=== PATIENT | female | born 1965 | race Caucasian/White ===

== ENCOUNTER 2017-09-19 13:53 | Emergency (ER) | payer MEDICAID, SELFPAY ==
[2017-09-19 13:54] VITALS: BP 155/86; PULSE 93; RESP 16; TEMP 36.7; O2SAT 100; BMI 42.7
--- NOTE | 2017-09-19 14:11 | RAD_ITS ---
STUDY: X-RAY - LEFT FOOT CLINICAL: Female, 51 years old. Status post fall pain TECHNIQUE: 3 view(s) of the foot. COMPARISON: None. FINDINGS: There is enthesopathy at the calcaneus. Normal visualized subtalar, talonavicular, calcaneocuboid, tarsal and tarsometatarsal articulations. Normal metatarsi. Normal metatarsophalangeal joint of the great toe. Normal tibial and fibular sesamoid bones. Normal interphalangeal joint of the great toe. Normal phalanges of the great toe. Normal second through fifth metatarsophalangeal joints. There is a subtle cortical defect within the mid proximal phalanx of the fourth digit. RAD/Foot min 3 Views IMPRESSION: Question subtle nondisplaced fracture of the proximal phalanx of the fourth digit with overlying soft tissue swelling. No other fracture is visualized. If pain persists recommend follow-up study when clinically appropriate. Electronically Signed: Mary Feldman MD at 15:12 EDT Tel , Service support ,
--- NOTE | 2017-09-19 15:12 | ED.VISSUMM ---
- ER Visit Summary Date of Service: 09/19/17 Chief Complaint: [Fall with injury to left foot] History of Present Illness: The patient is a 51 F [presents to the emergency department with a fall that occurred this morning. Patient states that she was coming down the steps when she tripped over a shoe at the bottom of the landing falling and twisting her feet. Patient initially did not have a lot of discomfort and was actually able to go grocery shopping and walk around without too much difficulty. Patient subsequently started developing more more discomfort of the point were now she is having a hard time walking. Patient denies any other injuries] Physical Examination: [HEENT-PERRLA, EOMI. Cranial nerves II through XII grossly intact. TMs clear. Mucous membranes moist. No adenopathy. Cardiovascular-regular rate and rhythm without murmur or ectopy Lungs-clear to auscultation, chest wall stable without crepitus or subcu emphysema Abdomen-normoactive bowel sounds, soft, nontender, no rebound or rigidity, no peritoneal signs. Extremities-intact ?4, normal range of motion, normal pulses, atraumatic]. Left foot-patient has diffuse tenderness to the midfoot. No significant soft tissue swelling, ecchymosis or bruising. Neurovascular intact distally. No pain at the ankle. Test Results: [X-ray of the left foot obtained read by myself as no acute fractures awaiting official report from radiology] Emergency Department Course and Treatment: [Patient will be given Nathan wrap and crutches] Treatment Plan: [Ice, elevation, crutches for comfort] Disposition: [Discharged to home in stable condition] Impression: Mechanical fall Left foot sprain] This note was generated with [employer] dictation software. It may contain incorrect words, spelling, and punctuation that were not noted in review of the chart prior to signing ED Disposition - Plan for ED Patient: Chief Complaint: Fall Referrals: Danny Suarez MD [Primary Care Provider] -
--- NOTE | 2017-09-19 15:15 | ED.DEP ---
ED Disposition - Plan for ED Patient: Chief Complaint: Fall Instructions: ED Mechanical Fall, ED Sprain Foot Prescriptions: Oxycodone HCl/Acetaminophen [Percocet 5/325] 1 tab PO Q6H PRN PRN 3 Days #12 tab PRN Reason: Pain Referrals: Danny Suarez MD [Primary Care Provider] - 5-7 Days
--- NOTE | 2017-09-19 15:23 | ED.DEP ---
ED Disposition - Plan for ED Patient: Chief Complaint: Fall Instructions: ED Mechanical Fall, ED Sprain Foot, ED Fx Toe Closed Prescriptions: Oxycodone HCl/Acetaminophen [Percocet 5/325] 1 tab PO Q6H PRN PRN 3 Days #12 tab PRN Reason: Pain Referrals: Danny Suarez MD [Primary Care Provider] - 5-7 Days
[2017-09-19] MEDS: oxyCODONE 5 MG Tablet PO (15:35)
[2017-09-19 15:45] VITALS: BP 148/85; PULSE 82; RESP 16; O2SAT 98
== END 2017-09-19 15:47 | disposition home or self-care (01) ==
LOC: ED 14:27
PROVIDERS: Emergency Provider Emergency Medicine; Family Provider Family Medicine; PCP Family Medicine
DX: S92.515A Nondisplaced fracture of proximal phalanx of left lesser toe(s), initial encounter for closed fracture (principal); S93.602A Unspecified sprain of left foot, initial encounter; W10.9XXA Fall (on) (from) unspecified stairs and steps, initial encounter; Y93.01 Activity, walking, marching and hiking; Y92.9 Unspecified place or not applicable; E78.00 Pure hypercholesterolemia, unspecified; E11.9 Type 2 diabetes mellitus without complications; Z79.84 Long term (current) use of oral hypoglycemic drugs; Z72.0 Tobacco use
CPT/HCPCS: 73630; 99284

== ENCOUNTER 2018-03-13 19:44 | Emergency (ER) | payer MEDICAID, SELFPAY ==
[2018-03-13 19:44] VITALS: BP 126/74; PULSE 89; RESP 15; TEMP 37.1; O2SAT 96; BMI 42.8
--- NOTE | 2018-03-13 20:00 | ED.VISSUMM ---
- ER Visit Summary Date of Service: 03/13/18 Chief Complaint: [Redness and swelling to upper back] History of Present Illness: The patient is a 52 F [presents the emergency department with swelling to her upper back that she initially noticed about 3 weeks ago. Patient states that initially it resolved but came back about 3 or 4 days ago. Her granddaughter then apparently pulled off the scab and there was large amount of purulent debris expressed from this. Patient's not had any fever. There is any trauma to her back.] Physical Examination: [HEENT-PERRLA, EOMI. Cranial nerves II through XII grossly intact. TMs clear. Mucous membranes moist. No adenopathy. Cardiovascular-regular rate and rhythm without murmur or ectopy Lungs-clear to auscultation, chest wall stable without crepitus or subcu emphysema Abdomen-normoactive bowel sounds, soft, nontender, no rebound or rigidity, no peritoneal signs. Back exam-right upper back just superior and medial to the scapula there is a soft tissue swelling measuring approximately 4 cm in diameter with 2 areas that are open and draining small amount of purulent debris. No significant fluctuance noted. No significant cellulitis. Extremities-intact ?4, normal range of motion, normal pulses, atraumatic] Test Results: [None indicated] Emergency Department Course and Treatment: [I compressed the suspected sebaceous cyst/abscess in just small amount of purulent debris was expressed. Given that this is currently draining I do not feel further I&D is warranted. Patient may need surgical intervention to completely remove the suspected sebaceous cyst. Patient will be started on Keflex and Bactrim and will be referred to general surgery.] Treatment Plan: [Keflex and Bactrim and general surgery referral to Dr. Moy Ramos] Disposition: [Discharged home in stable condition] Impression: [Infected sebaceous cyst-upper back] This note was generated with [employer] dictation software. It may contain incorrect words, spelling, and punctuation that were not noted in review of the chart prior to signing ED Disposition - Plan for ED Patient: Chief Complaint: Wound Referrals: Danny Suarez MD [Primary Care Provider] -
--- NOTE | 2018-03-13 20:03 | ED.DEP ---
ED Disposition - Plan for ED Patient: Chief Complaint: Wound Instructions: ED Cyst Sebaceous Infec Abx Tx Prescriptions: Cephalexin [Keflex] 500 mg PO Q6 #40 cap Smz/Tmp Ds [Bactrim Ds] 2 tab PO BID #40 tab Referrals: Danny Suarez MD [Primary Care Provider] - Moy Ramos MD [STAFF PHYSICIAN] - 3-5 Days
[2018-03-13] MEDS: Cephalexin 250 MG Capsule 500 MG PO (20:13)
[2018-03-13] MEDS: Smz/Tmp Ds Tablet 2 TABLET PO (20:13)
[2018-03-13 20:17] VITALS: RESP 16
== END 2018-03-13 20:19 | disposition home or self-care (01) ==
LOC: ED 20:10
PROVIDERS: Emergency Provider Emergency Medicine; Family Provider Family Medicine; PCP Family Medicine
DX: L72.3 Sebaceous cyst (principal); L02.212 Cutaneous abscess of back [any part, except buttock and flank]; B96.89 Other specified bacterial agents as the cause of diseases classified elsewhere; E11.9 Type 2 diabetes mellitus without complications; Z79.84 Long term (current) use of oral hypoglycemic drugs; Z86.14 Personal history of Methicillin resistant Staphylococcus aureus infection; Z72.0 Tobacco use
CPT/HCPCS: 99283

== ENCOUNTER 2019-07-19 19:32 | Emergency (ER) | payer MEDICAID, SELFPAY ==
[2019-07-19] VITALS (8 sets, daily range): BP systolic 147–162; BP diastolic 57–79; PULSE 93–113; RESP 20–36; TEMP 37.7–38.5; O2SAT 88–93; BMI 43.5
--- NOTE | 2019-07-19 20:09 | EKG12_ITS ---
Test Reason : SOB Blood Pressure : / mmHG Vent. Rate : 095 BPM Atrial Rate : 095 BPM P-R Int : 144 ms QRS Dur : 092 ms QT Int : 346 ms P-R-T Axes : 057 007 062 degrees QTc Int : 434 ms Normal sinus rhythm Normal ECG Confirmed by MANA MURRELL, TAWANNA ([id number]), technical writer and editor SAM CHING ([id number]) on 07/24/2019 10:34:49 AM Referred By: DWAIN Confirmed By:CLARE ADAIR MD
[2019-07-19] MEDS: Ipratropium/Albuterol Sulfate 3 ML AMPUL.NEB INHALATION (20:20)
[2019-07-19 20:46] LABS: Absolute Lymphocyte Count 0.51 X10^3/uL (0.83-4.51); Absolute Neutrophil Count 3.1 X10^3/uL (2.0-7.7); Basophil# 0.01 X10^3/uL; Basophil% 0.2 % (0-1); Hematocrit 42.6 % (37-47); Lymphocyte # 0.51 X10^3/ul (4.0); Lymphocyte % 12.4 % (19-41); Mean Corp Hgb Conc 35.2 g/dL (32-36); Mean Corpuscular Hgb 31.5 pg (27.0-32.0); Mean Corpuscular Volume 89.5 fL (81-99); Mean Platelet Vol. 10.9 fl (6.2-12.0); Monocyte# 0.42 X10^3/uL; Monocyte% 10.2 % (0-10); NRBC Flagged by Analyzer 0 % (0-5); Neutrophil # 3.14 X10^3/uL (2.7-7.7); Neutrophil % 76.2 % (47-70); POSITIVE COUNT YES; POSITIVE DIFFERENTIAL YES; POSITIVE MORPHOLOGY YES; Platelet Count 98 K/mm3 (150-450); RBC Distribution Width CV 12.9 % (11.6-14.6); RBC Distribution Width SD 42.5 fl (35.1-43.9); Red Blood Count 4.76 M/mm3 (4.2-5.4); White Blood Count 4.1 K/mm3 (4.4-11.0)
[2019-07-19] MEDS: 0.9% Normal Saline 1,000 ML 150 ML IV (20:47)
[2019-07-19 20:50] LABS: Differential Indicated SCAN CRITERIA MET
--- NOTE | 2019-07-19 20:50 | RAD_ITS ---
STUDY: X-RAY CHEST REASON FOR EXAM: Female, 53 years old. Cough, fever, positive for flu TECHNIQUE: PA and lateral views of the chest. COMPARISON: None. FINDINGS: The lungs are mildly hyperinflated. There is peribronchial cuffing. There is a linear opacity within the left mid/lower lung. Normal size heart. Normal mediastinum and laura. Normal visualized pulmonary arteries. Normal visualized aortic arch and descending thoracic aorta. There are diffuse degenerative changes of the visualized thoracic spine. Normal visualized ribs, clavicles, and shoulders. There is no demonstrated abnormality of the visualized soft tissue structures of the upper abdomen. RAD/Chest PA and Lateral IMPRESSION: Findings may reflect bronchitis. Minimal atelectasis and/or scarring within the mid/lower left lung. Electronically Signed: Felisa Russell MD at 21:30 EST Tel , Service support ,
[2019-07-19 21:01] LABS: Lactic Acid 1.3 mmol/L (0.4-1.9)
[2019-07-19 21:03] LABS: Anion Gap 5 (5-15); BUN 11 mg/dL (7-18); BUN/Creat Ratio 13.9 RATIO (10-20); Calcium,Total 8.6 mg/dL (8.5-10.1); Chloride 105 mmol/L (98-107); Creatinine, Serum 0.79 mg/dL (0.55-1.02); EST Glomerular Filtration Rate 80 mL/min (>60); Est Glom Filt Rate - Afr Amer 97 mL/min (>60); Estimated Creatinine Clearance 67.34 ml/min; Glucose 151 mg/dL (74-106); Potassium 3.7 mmol/L (3.5-5.1); Sodium Level 135 mmol/L (136-145)
--- NOTE | 2019-07-19 21:16 | ED.RN ---
DR. GRANADOS MADE AWARE OF PATIENT BEING A SEPSIS ALERT. IT WAS NOT ALERTED IN TRIAGE.
[2019-07-19] MEDS: Ibuprofen 200 MG Tablet 800 MG PO (21:19)
[2019-07-19 21:26] LABS: Differential Comment SCANNED; Platelet Estimate MOD DEC (ADEQ); Red Cell Morphology NORM C+C NORMAL (NORM C&C)
--- NOTE | 2019-07-19 21:43 | ED.VISSUMM ---
- ER Visit Summary Date of Service: 07/19/19 Chief Complaint: [Cough and shortness of breath] History of Present Illness: The patient is a 53 F [presents the emergency department with a cough for several weeks. Patient states that she was treated for bronchitis with an antibiotic 3 weeks ago as well as with Mucinex and thyroids. Patient did get somewhat better but 3 days ago started feeling worse again. Patient coughing up phlegm at times. She is had fever. She complains of body aches and chills. She has history of diabetes, hypertension, and asthma. She does not wear home O2. She does use an Rachel at home as needed. Patient's grandchild recently diagnosed with influenza.] Physical Examination: [HEENT-PERRLA, EOMI. Cranial nerves II through XII grossly intact. TMs clear. Mucous membranes moist. No adenopathy. Cardiovascular-regular rate and rhythm without murmur or ectopy Lungs-good aeration bilaterally. Patient has some faint expiratory wheezes. Patient does have some tachypnea. No accessory muscle use or retractions. With ambulation patient gets very tachypneic. Her O2 sat dropped to 88% on room air. Abdomen-normoactive bowel sounds, soft, nontender, no rebound or rigidity, no peritoneal signs. Extremities-intact ?4, normal range of motion, normal pulses, atraumatic] Test Results: [EKG obtained arrival shows sinus rhythm with a ventricular rate of 95 bpm with no acute segment changes. CBC with differential showing a 4.1, hemoglobin 15, hematocrit 43, platelets 98. Chemistries unremarkable. Influenza screen was positive for influenza A. Patient had a chest x-ray that showed bronchitis type picture with minimal atelectasis in the bases.] Emergency Department Course and Treatment: [Patient was placed on nasal cannula O2. Patient was started on a DuoNeb aerosol and given Solu-Medrol 60 mg IV.] Treatment Plan: [I recommended admission given the patient is hypoxic. Patient is refusing to be admitted and wishes to sign out AGAINST MEDICAL ADVICE. I explained to her my concerns that she is hypoxic and has the flu and history of asthma which puts her at increased risk for complications and potentially respiratory failure and . She and her daughter both understand this and she is adamant that she will not stay and wishes to be discharged home. Patient is 3 days into the illness and is not within the window for Tamiflu. Patient does not wish to proceed with treatment with Tamiflu. She understands she may return to the ER at anytime for worsening symptoms. She is advised to follow-up with her primary care physician within the next 2 to 3 days.] Disposition: [Discharged home AGAINST MEDICAL ADVICE] Impression: [Influenza a Hypoxemia] This note was generated with [employer] dictation software. It may contain incorrect words, spelling, and punctuation that were not noted in review of the chart prior to signing ED Disposition - Plan for ED Patient: Referrals: Danny Suarez MD [Primary Care Provider] -
--- NOTE | 2019-07-19 21:48 | ED.DEP ---
ED Disposition - Plan for ED Patient: Instructions: INFLUENZA (Adult) Prescriptions: Prednisone [Deltasone] 20 mg PO BID #6 tab Prescription Printed Benzonatate [Tessalon Perle] 200 mg PO TID PRN PRN #20 cap PRN Reason: Cough Prescription Printed Referrals: Danny Suarez MD [Primary Care Provider] - As soon as possible
[2019-07-19] MEDS: predniSONE 20 MG Tablet 40 MG PO (22:00)
[2019-07-20 11:47] LABS: Pathologist Review Reviewed
== END 2019-07-19 22:07 | disposition home or self-care (01) ==
LOC: ED 20:25
PROVIDERS: Emergency Provider Emergency Medicine; PCP Family Medicine
DX: J11.1 Influenza due to unidentified influenza virus with other respiratory manifestations (principal); R09.02 Hypoxemia; I10 Essential (primary) hypertension; E11.9 Type 2 diabetes mellitus without complications; J45.909 Unspecified asthma, uncomplicated; Z79.84 Long term (current) use of oral hypoglycemic drugs; Z72.0 Tobacco use
CPT/HCPCS: 71046; 80048; 83605; 85025; 87040; 87804; 93005; 94640; 96360; 96361; 99285; J7030; A4216

== ENCOUNTER 2019-07-26 16:52 | Emergency (ER) | payer MEDICAID, SELFPAY ==
[2019-07-19 19:34] VITALS: BMI 43.5
[2019-07-26 16:55] VITALS: BP 124/77; PULSE 97; RESP 20; TEMP 36.8; O2SAT 98; O2SAT 99; BMI 44.4
[2019-07-26 17:12] VITALS: BP 141/77; PULSE 97; RESP 20; TEMP 36.8; O2SAT 95
[2019-07-26] MEDS: Albuterol 2.5 MG/3 ML VIAL.NEB. INHALATION ×2 (17:13)
[2019-07-26 17:15] VITALS: PULSE 100; RESP 20
[2019-07-26] MEDS: predniSONE 20 MG Tablet 60 MG PO (17:33)
--- NOTE | 2019-07-26 17:41 | RAD_ITS ---
STUDY: X-RAY CHEST REASON FOR EXAM: Female, 53 years old. COUGH, SOB X 3 WEEKS, DX WITH FLU 1 WEEK AGO TECHNIQUE: PA and lateral chest. COMPARISON: 07/19/2019. FINDINGS: The lungs are clear and expanded. There is no demonstrated pleural abnormality. Normal size heart. Normal mediastinum and laura. Normal visualized pulmonary arteries. Normal visualized aortic arch and descending thoracic aorta. Normal visualized thoracic spine. Normal visualized ribs, clavicles, and shoulders. There is no demonstrated abnormality of the visualized soft tissue structures of the upper abdomen. RAD/Chest PA and Lateral IMPRESSION: Normal x-ray examination of the chest. Electronically Signed: Julia Juares MD at 17:58 EST Tel , Service support ,
--- NOTE | 2019-07-26 17:43 | ED.DCSUM_ITS ---
- ER Visit Summary Date of Service: 07/26/19 Chief Complaint: Cough History of Present Illness: The patient is a 53 F who presents with a cough. She has had this for about 1 week. 2 weeks ago she was diagnosed with bronchitis at an urgent care and was given steroids and Mucinex. She felt better but then the illness returned. She was seen again 1 week ago and was diagnosed with influenza. She was 88% on room air when she ambulated and they recommended admission to the hospital after she was seen here. She went home but she has not felt better. She denies any fevers currently. She does have an inhaler at home that she uses. Admits to sinus congestion Physical Examination: Signs are reviewed. She is 95% on room air. HEENT exam reveals rhinorrhea. No pharyngeal erythema. Heart is regular rate and rhythm without murmurs. Lungs have diffuse expiratory wheezing. Abdomen soft nontender. Her extremities have no edema. Her GCS is 15. Normal strength and sensation bilaterally. Test Results: Chest x-ray unremarkable Emergency Department Course and Treatment: The patient is 95% on room air. I gave her albuterol and prednisone. Upon reevaluation she is feeling much better. She is 94% on room air. She feels like she can breathe better. At this point I do not feel she needs any further antibiotics. I will give her more prednisone to take at home. She will continue [id number] medications and her albuterol inhaler with a spacer. She is going to call her doctor tomorrow for follow-up. Treatment Plan: [] Disposition: Discharge Impression: Acute bronchitis This note was generated with [employer] dictation software. It may contain incorrect words, spelling, and punctuation that were not noted in review of the chart p rior to signing ED Disposition - Plan for ED Patient: Disposition: Home or Assisted Living Instructions: BRONCHITIS with Wheezing (Adult) Prescriptions: Prednisone [Deltasone] 60 mg PO DAILY #15 tab Transmission Status: Pending to [facility] Referrals: Danny Suarez MD [Primary Care Provider] - Additional Instructions: Your prescription was electronically transmitted to [facility]
--- NOTE | 2019-07-26 18:14 | ED.RN ---
PER KATE BENSON TO D/C SEPSIS SCREEN.
[2019-07-26 18:36] VITALS: BP 141/98; PULSE 100; RESP 20; O2SAT 94
--- NOTE | 2019-07-26 18:36 | ED.RN ---
PT GIVEN WRITTEN AND VERBAL DISCHARGE INSTRUCTIONS AND HOME GOING PRESCRIPTIONS. PT A+OX4 AND VERBALIZES UNDERSTANDING. PT DENIES ANY FURTHER QUESTIONS. EDUCATED TO FOLLOW UP WITH DR. CRUZ WITHIN THE NEXT WEEK AND RETURN TO ED FOR ANY NEW OR WORSENED SX. PT D/C FROM MONITOR AND DRESSES SELF. AMBULATES OUT OF DEPT BY SELF.
== END 2019-07-26 18:38 | disposition home or self-care (01) ==
PROVIDERS: Emergency Provider Emergency Medicine; PCP Family Medicine
DX: J20.9 Acute bronchitis, unspecified (principal); E11.9 Type 2 diabetes mellitus without complications; Z79.84 Long term (current) use of oral hypoglycemic drugs; Z72.0 Tobacco use
CPT/HCPCS: 71046; 94640; 99284

== ENCOUNTER → 2020-06-26 11:50 | Outpatient (CLI) | payer MEDICAID, SELFPAY ==
[2020-06-26 11:07] VITALS: BMI 47.8
[2020-06-26 13:07] LABS: BNP,B-Type NATRIURETIC PEPTIDE 26.9 pg/mL (0-100)
== END ==
PROVIDERS: PCP Family Medicine; Referring Provider Internal Medicine Cardiovascular Disease; Visit Provider Internal Medicine Cardiovascular Disease
DX: R06.00 Dyspnea, unspecified (principal)
CPT/HCPCS: 36415; 83880

== ENCOUNTER → 2020-07-04 09:49 | Outpatient (CLI) | payer MEDICAID, SELFPAY ==
[2020-06-26 11:07] VITALS: BMI 47.8
--- NOTE | 2020-07-04 09:50 | ECHOCS_ITS ---
Reason For Study: SOB Procedure This was a 2D Doppler, Color Flow transthoracic echocardiogram. The study was technically difficult. Exam performed in department. Left Ventricle Normal left ventricle. The estimated ejection fraction is 60 %. Left ventricular systolic function is normal. No regional wall motion abnormalities noted. Right Ventricle Normal right ventricle. Normal systolic function. Atria Normal left atrium. Normal right atrium. Mitral Valve Mitral valve not well visualized. Tricuspid Valve Normal tricuspid valve. Aortic Valve Trisinus/trileaflet aortic valve. Pulmonic Valve The pulmonic valve is not well visualized. Great Vessels Normal aortic root. The pulmonary artery is normal size. Normal inferior vena cava. Pericardium/Pleural No pericardial effusion. Medication 22 gauge I.V. with prn adaptor inserted into right arm. Diluted definity 2ml given slow IV push to enhance endocardial definition. MMode/2D Measurements & Calculations LVIDd: 4.0 cm IVSd: 1.3 cm Ao root diam: 3.2 cm LVIDs: 2.7 cm LVPWd: 1.4 cm FS: 32.7 % LA dimension(2D): 3.2 cm Doppler Measurements & Calculations MV E max dani: 54.2 cm/sec Lat Peak E' Dani: 7.9 cm/sec Med Peak E' Dani: 5.8 cm/sec MV A max dani: 73.4 cm/sec E/E' lat: 6.9 E/E' med: 9.3 MV E/A: 0.74 Ao V2 max: 140.9 cm/sec LV V1 max: 116.6 cm/sec PA V2 max: 126.0 cm/sec Ao max P.9 mmHg LV V1 max P.4 mmHg Interpretation Summary Normal left ventricle. The estimated ejection fraction is 60 %. No regional wall motion abnormalities noted. Left ventricular systolic function is normal. Contrast injection was performed. Ordering Physician: Omid Castaneda Referring Physician: Danny Suarez Performed By: Maryuri Gaitan RDCS
== END ==
PROVIDERS: PCP Family Medicine; Referring Provider Internal Medicine Cardiovascular Disease; Visit Provider Internal Medicine Cardiovascular Disease
DX: R06.02 Shortness of breath (principal)
CPT/HCPCS: 93306; Q9957; A4216; C8929

== ENCOUNTER → 2020-08-13 09:12 | Outpatient (CLI) | payer MEDICAID, SELFPAY ==
[2020-06-26 11:07] VITALS: BMI 47.8
[2020-08-13 10:28] LABS: International Normalized Ratio 1.1; Prothrombin Time (Protime)PT. 13.2 SECONDS (11.7-14.9)
[2020-08-13 10:29] LABS: Absolute Lymphocyte Count 1.22 X10^3/uL (0.83-4.51); Absolute Neutrophil Count 2.8 X10^3/uL (2.0-7.7); Basophil# 0.02 X10^3/uL; Basophil% 0.5 % (0-1); Eosinophil# 0.06 X10^3/uL; Eosinophils% 1.4 % (0-5); Hemoglobin 13.8 g/dL (12.0-15.0); Lymphocyte # 1.22 X10^3/ul (4.0); Lymphocyte % 27.6 % (19-41); Mean Corp Hgb Conc 33.7 g/dL (32-36); Mean Corpuscular Hgb 31.2 pg (27.0-32.0); Mean Corpuscular Volume 92.6 fL (81-99); Mean Platelet Vol. 11.5 fl (6.2-12.0); Monocyte# 0.27 X10^3/uL; Monocyte% 6.1 % (0-10); NRBC Flagged by Analyzer 0 % (0-5); Neutrophil # 2.83 X10^3/uL (2.7-7.7); Neutrophil % 63.9 % (47-70); Platelet Count 123 K/mm3 (150-450); RBC Distribution Width CV 13.2 % (11.6-14.6); RBC Distribution Width SD 43.7 fl (35.1-43.9); Red Blood Count 4.43 M/mm3 (4.2-5.4); White Blood Count 4.4 K/mm3 (4.4-11.0)
[2020-08-13 11:26] LABS: Hepatitis B Surface Antibody Non-Reactive; Hepatitis B Surface Antigen Non-Reactive (Nonreactive); Hepatitis C Antibody Non-Reactive (Nonreactive); Vitamin B12 335 pg/mL (211-911)
[2020-08-13 13:36] LABS: AST(SGOT) 62 U/L (15-37); Alanine Aminotransfer ALT/SGPT 61 U/L (13-56); Albumin, Serum 3.3 g/dL (3.2-5.0); Alkaline Phosphatase 66 U/L (45-117); Anion Gap 7 (5-15); BUN 11 mg/dL (7-18); BUN/Creat Ratio 17.2 RATIO (10-20); Bilirubin, Direct 0.19 mg/dL (0.00-0.30); Calcium,Total 8.3 mg/dL (8.5-10.1); Chloride 108 mmol/L (98-107); Creatinine, Serum 0.64 mg/dL (0.55-1.02); EST Glomerular Filtration Rate 103 mL/min (>60); Est Glom Filt Rate - Afr Amer 124 mL/min (>60); Ferritin 152 ng/mL (8-252); GGTP 100 U/L (5-55); Globulin 3.2 g/dL (2.2-4.2); Glucose 245 mg/dL (74-106); Iron 110 ug/dL (50-170); Iron Binding Capacity,Total 310 ug/dL (250-450); Potassium 3.9 mmol/L (3.5-5.1); Protein, Total 6.5 g/dL (6.4-8.2); Sodium Level 140 mmol/L (136-145); T4 Total, Thyroxin 12.9 ug/dL (4.8-13.9); Thyroid Stim Hormone (TSH) 0.66 uIU/mL (0.358-3.74)
[2020-08-14 16:09] LABS: ANTINUCLEAR ANTIBODIES DIRECT Negative (Negative)
[2020-08-14 20:56] LABS: Alpha Antitrypsin Serum 150 mg/dL (101-187); Anti-Mitochondrial AB <20.0 Units (0.0-20.0)
[2020-08-19 16:08] LABS: Ceruloplasmin 20.2 mg/dL (19.0-39.0); Hepatitis B Core Ab Total Negative (Negative); Immunoglobulin A 160 mg/dL (87-352); PROEL- A/G Ratio 1.3 (0.7-1.7); PROEL- Albumin 3.6 g/dL (2.9-4.4); PROEL- Alpha-1 Globulin 0.2 g/dL (0.0-0.4); PROEL- Alpha-2 Globulin 0.7 g/dL (0.4-1.0); PROEL- Gamma Globulin 0.9 g/dL (0.4-1.8); PROEL- Globulin, Total 2.8 g/dL (2.2-3.9); PROEL- TOTAL PROTEIN 6.4 g/dL (6.0-8.5)
[2020-08-19 19:50] LABS: Anti-Smooth Muscle ABS 8 Units (0-19); Deamidated Gliadin IgA 4 units (0-19); Deamidated Gliadin IgG 2 units (0-19); EBV Acute VCA IgM 65.7 U/mL (0.0-35.9); EBV Nuclear Antigen IgG > 600.0 U/mL (0.0-17.9); EBV-VCA IgG > 600.0 U/mL (0.0-17.9); Hepatitis A AB, Total Negative (Negative); Vitamin A, Retinol 36.7 ug/dL (20.1-62.0); t-Transglutaminase IgA <2 U/mL (0-3)
== END ==
PROVIDERS: PCP Family Medicine; Referring Provider Internal Medicine Gastroenterology; Visit Provider Internal Medicine Gastroenterology
DX: R94.5 Abnormal results of liver function studies (principal); R19.7 Diarrhea, unspecified
CPT/HCPCS: 36415; 80048; 80076; 82103; 82105; 82306; 82390; 82607; 82728; 82784; 82977; 83516; 83540; 83550; 84165; 84436; 84443; 84590; 85025; 85610; 85730; 86038; 86644; 86664; 86665; 86704; 86706; 86708; 86803; 87340

== ENCOUNTER → 2020-08-14 09:17 | Outpatient (CLI) | payer MEDICAID, SELFPAY ==
[2020-06-26 11:07] VITALS: BMI 47.8
--- NOTE | 2020-08-14 09:20 | US_ITS ---
STUDY: ABDOMINAL ULTRASOUND - ELASTOGRAPHY REASON FOR VISIT: Female, 54 years old. Fatty infiltration of the liver. Hepatomegaly. TECHNIQUE: Liver stiffness measurements were obtained on a [employer] RS 85 ultrasound machine using a CA 1-7 probe following the SRU guidelines. 3 measurements were obtained using a 2-D-SWE method. TheI QR/M was 12% suggesting a quality data set. TECHNICAL QUALITY: Adequate. COMPARISON: Comparison is made with prior ultrasound of the right upper quadrant done earlier in the day. FINDINGS: Liver: Hepatomegaly and fatty infiltration of the liver. Median liver stiffness measured 6.1 kPa. US/Elastography Parenchyma/Organ IMPRESSION: Liver stiffness measures 6.1 kPa compatible with F2 -- F 3 Metavir score. Electronically Signed: Dhaval Deleon MD at 12:37 EST , Service support ,
--- NOTE | 2020-08-14 09:20 | US_ITS ---
STUDY: ABDOMINAL ULTRASOUND - RIGHT UPPER QUADRANT REASON FOR VISIT: Female, 54 years old FATTY LIVER TECHNIQUE: Ultrasound evaluation of the right upper quadrant was performed with real-time and static loera-scale imaging. TECHNICAL QUALITY: Limited. Examination limited due to a combination of factors including obesity and bowel gas. COMPARISON: None. FINDINGS: Liver: The liver is enlarged and measures 22.4 cm. There is normal echogenicity of the liver. The bile ducts are within normal limits. There is hepatic color flow. The direction of portal flow is hepatopetal. There is no demonstrated mass lesion. Gallbladder: The patient is status post cholecystectomy. Common Bile Duct (C.B.D.): The common bile duct measures 9 mm. Pancreas: Normal size of the head, body and tail of the pancreas. There is normal echogenicity of the pancreas. There is no demonstrated pancreatic mass or cyst. Right Kidney: Normal size of the right kidney. The right kidney measures 11.7 cm x 4.8 cm x 5.8 cm. Normal renal cortex. The right cortex measures 1.4 cm. There is no demonstrated renal mass or cyst. There is no right hydronephrosis. US/Abdomen Limited IMPRESSION: Hepatomegaly and fatty infiltration of the liver. Electronically Signed: Dhaval Deleon MD at 10:45 EST , Service support ,
== END ==
PROVIDERS: PCP Family Medicine; Referring Provider Internal Medicine Gastroenterology; Visit Provider Internal Medicine Gastroenterology
DX: K76.0 Fatty (change of) liver, not elsewhere classified (principal)
CPT/HCPCS: 76705; 76981

== ENCOUNTER 2020-10-06 13:48 | Emergency (ER) | payer MEDICAID, SELFPAY ==
[2020-06-26 11:07] VITALS: BMI 47.8
[2020-10-06 13:49] VITALS: BP 166/94; PULSE 94; RESP 18; TEMP 36.3; O2SAT 97; BMI 48.5
--- NOTE | 2020-10-06 13:57 | RAD_ITS ---
STUDY: X-RAY CHEST REASON FOR EXAM: Female, 54 years old. Dyspnea TECHNIQUE: Single AP portable view of the chest. COMPARISON: July 26, 2019 chest x-ray FINDINGS: There is persistent mild prominence of the right hilar soft tissue elevation of the right hemidiaphragm. No interval infiltrate. There is no demonstrated pleural abnormality. There is borderline cardiomegaly. Normal mediastinum and laura. Normal visualized pulmonary arteries. Normal visualized aortic arch and descending thoracic aorta. Normal visualized thoracic spine. Normal visualized ribs, clavicles, and shoulders. There is no demonstrated abnormality of the visualized soft tissue structures of the upper abdomen. RAD/Chest 1 View (Portable) IMPRESSION: Stable chest. Borderline cardiac enlargement. Electronically Signed: Mary Feldman MD at 15:57 EDT Tel , Service support ,
[2020-10-06 14:02] VITALS: PULSE 88; RESP 15; O2SAT 97
--- NOTE | 2020-10-06 14:04 | ED.VIS.GEN ---
History of Present Illness Chief Complaint: Shortness of Breath Informant: Patient Narrative: 54-year-old female with past medical history of hypertension, Escudero, hyperlipidemia, morbid obesity presents with concern for shortness of breath. States that yesterday she began with a runny nose, sore throat, cough, shortness of breath. Denies any chest pain, fever, chills, diaphoresis. Patient concerned because approximately she had a respiratory illness which caused her to be on oxygen for significant period of time which she has since recovered. Patient stopped smoking 1 year ago. Past Medical History - Allergies and Home Meds Allergies/Adverse Reactions: Allergies bacitracin Allergy (Verified 10/06/20 13:52) Other bacitracin eye ointment, swelling, itching, redness to eye requiring hospitalization hydrocodone bitartrate [From Vicodin] Adverse Reaction (Verified 10/06/20 13:52) Nausea Primary Care Physician: Danny Suarez MD [Primary Care Provider] - Prior records reviewed: Yes Past Medical History: - - HTN, HLD, ESCUDERO Surgical History: noncontributory, - - Complete dental extractions December 31 Lives: Spouse/ Significant Other Smoking Status: Former smoker Alcohol: None Drugs: None - Family History Maternal Family History: Family History (Last Reviewed 06/26/20 @ 11:[address] Omid Castaneda MD) Mother Hypertension Heart disease Hyperlipidemia Grandfather Cancer COPD (chronic obstructive pulmonary disease) Additional Family History: Noncontributory Paternal Family History: Family History (Last Reviewed 06/26/20 @ 11:[address] Omid Castaneda MD) Mother Hypertension Heart disease Hyperlipidemia Grandfather Cancer COPD (chronic obstructive pulmonary disease) Additional Family History: Noncontributory Review of Systems General: Reports: Malaise. Denies: Chills, Fever, Sweats Eyes: Denies: Visual changes - bilaterally, Diplopia ENT: Reports: Rhinorrhea, Sore throat Cardiovascular: Denies: Chest pain, Palpitations Respiratory: Reports: Dyspnea, Cough. Denies: Dyspnea on exertion Gastrointestinal: Denies: Abdominal pain, Nausea, Vomiting, Diarrhea, Melena, Hematochezia Genitourinary: Denies: Dysuria, Hematuria, Frequency Musculoskeletal: Denies: Back pain, Extremity Pain Skin: Denies: Rash, Wounds Neurological: Denies: Headache, Weakness, Numbness Physical Exam Vital Signs/Narrative: Vital Signs Temp Pulse Resp BP Pulse Ox 10/06/20 13:49 97.3 F L 94 18 166/94 H 97 Inital Vital Signs reviewed: Yes General: Well nourished, Well developed, No Acute Distress Head: Normocephalic, Atraumatic Eyes: Perrl, EOMI ENT: Moist mucous membranes, No rhinorrhea Neck: Supple, Nontender Cardiovascular: Regular rate, Regular rhythm, No murmurs Respiratory: No distress, Chest nontender, - - Left posterior upper lobe ronchi Abdomen: Soft, Nontender, Nondistended, Normal bowel sounds Back: Nontender, Normal Inspection Extremities: Nontender, No edema Skin: Normal color, No rash Neurological: Alert, Oriented x3, Cranial nerves II-XII grossly intact, Normal Strength, Normal Sensation Psychological: Normal affect, Normal Mood Diagnostic/Tx/Re-eval Chest X-Ray - ED: 2 View, Read by ED Physician, Read by Radiologist, Normal Clinical Impression(s) from Imaging Studies Chest X-Ray 10/06/20 13:57 IMPRESSION: Stable chest. Borderline cardiac enlargement. Electronically Signed: Mary Feldman MD at 15:57 EDT Tel , Service support , - Medical Decision Making Patient appears well and nontoxic. Left upper lobe rhonchi. Patient given DuoNeb. Coronavirus negative. Chest x-ray interpreted by myself shows no acute infiltrate. Patient feeling improved after breathing treatment. Will be given prednisone and asked to follow-up with her primary care provider. Patient has albuterol inhaler already at home. Stable at time of discharge. Impression: 1. Bronchitis ED Disposition - Plan for ED Patient: Disposition: Home or Assisted Living Instructions: ED Bronchitis with Wheezing (Adult) Prescriptions: Prednisone [Deltasone] 40 mg PO DAILY #10 tablet Prescription Printed Referrals: Danny Suarez MD [Primary Care Provider] - 2 Days
[2020-10-06 14:11] VITALS: PULSE 80; RESP 16
[2020-10-06] MEDS: Ipratropium/Albuterol Sulfate 3 ML AMPUL.NEB INHALATION (14:11)
[2020-10-06] MEDS: predniSONE 20 MG Tablet 60 MG PO (16:08)
[2020-10-06 16:10] VITALS: BP 154/84; PULSE 89; RESP 15; O2SAT 98
== END 2020-10-06 16:10 | disposition home or self-care (01) ==
PROVIDERS: Emergency Provider Emergency Medicine; PCP Family Medicine
DX: J40 Bronchitis, not specified as acute or chronic (principal); I10 Essential (primary) hypertension; E78.5 Hyperlipidemia, unspecified; E66.01 Morbid (severe) obesity due to excess calories; Z68.42 Body mass index [BMI] 45.0-49.9, adult; Z79.899 Other long term (current) drug therapy; Z87.891 Personal history of nicotine dependence
CPT/HCPCS: 71045; 87426; 94640; 99282

== ENCOUNTER → 2020-11-25 08:07 | Outpatient (CLI) | payer MEDICAID, SELFPAY ==
[2020-11-25 09:13] LABS: AST(SGOT) 36 U/L (15-37); Alanine Aminotransfer ALT/SGPT 42 U/L (13-56); Albumin, Serum 3.5 g/dL (3.2-5.0); Alkaline Phosphatase 57 U/L (45-117); Bilirubin, Direct 0.17 mg/dL (0.00-0.30); Globulin 3.5 g/dL (2.2-4.2)
[2020-11-27 13:27] LABS: EBV Nuclear Antigen IgG > 600.0 U/mL (0.0-17.9); EBV-VCA IgG > 600.0 U/mL (0.0-17.9)
== END ==
PROVIDERS: PCP Family Medicine; Referring Provider Internal Medicine Gastroenterology; Visit Provider Internal Medicine Gastroenterology
DX: R94.5 Abnormal results of liver function studies (principal)
CPT/HCPCS: 36415; 80076; 86664; 86665

== ENCOUNTER → 2021-02-26 09:28 | Outpatient (CLI) | payer MEDICAID, SELFPAY ==
[2021-01-22 07:17] VITALS: BMI 47.8
--- NOTE | 2021-02-27 11:39 | PFTCOMP_ITS ---
COMPLETE PULMONARY FUNCTION TEST INTERPRETATION Brief HPI: Patient is a 55 year old female, currently under the care of myself, who presents to [facility] for complete pulmonary function tests secondary to diagnosis of dyspnea. Respiratory therapist reports good effort and reproducible results. Interpretation: Forced expiration spirometry shows no large airways obstructive ventilatory defect with an FEV1 of 81% predicted. There is no significant bronchodilator response by strict ATS criteria. Spirograms are of good quality and plateau normally. The respiratory flow volume loop shows a normal pattern. Lung volumes by body plethysmography show a normal total lung capacity at 4.24 L , 88% predicted. All other lung volumes are within normal limits. Diffusion capacity by carbon monoxide is normal at 80% predicted. The airway resistance is normal. No previous pulmonary function tests were available for review. Impression: These pulmonary function tests are within normal limits.
== END ==
PROVIDERS: PCP Family Medicine; Referring Provider Internal Medicine Critical Care Medicine; Visit Provider Internal Medicine Critical Care Medicine
DX: R06.00 Dyspnea, unspecified (principal)
CPT/HCPCS: 94060; 94726; 94729

== ENCOUNTER → 2021-04-10 20:00 | Outpatient (CLI) | payer MEDICAID, SELFPAY ==
[2021-01-22 07:17] VITALS: BMI 47.8
== END ==
PROVIDERS: PCP Family Medicine; Visit Provider Nurse Practitioner Acute Care
DX: G47.33 Obstructive sleep apnea (adult) (pediatric) (principal)
CPT/HCPCS: 95811

== ENCOUNTER → 2021-05-05 10:00 | Outpatient (CLI) | payer MEDICAID, SELFPAY | PROVIDERS: PCP Family Medicine; Referring Provider Nurse Practitioner Acute Care; Visit Provider Nurse Practitioner Acute Care | DX: Z53.21 Procedure and treatment not carried out due to patient leaving prior to being seen by health care provider (principal) ==

== ENCOUNTER → 2021-05-22 11:00 | Outpatient (CLI) | payer MEDICAID, SELFPAY | PROVIDERS: PCP Family Medicine; Visit Provider Internal Medicine Critical Care Medicine | DX: G47.33 Obstructive sleep apnea (adult) (pediatric) (principal) | CPT/HCPCS: 98960; G0463 ==

== ENCOUNTER 2022-11-15 20:49 | Emergency (ER) | payer MEDICARE, MEDICAID, SELFPAY ==
[2022-11-15 20:50] VITALS: BP 177/81; PULSE 66; RESP 16; TEMP 36; O2SAT 98; BMI 46.0
--- NOTE | 2022-11-15 22:05 | EDS_ITS ---
HPI History of Present Illness Chief Complaint: Eye Problem Detail of Chief Complaint: Bilateral red eyes with drainage Informant: patient Onset/Context/Timing Location: Bilateral Eyes Onset: Yesterday Context: Sudden Onset Timing: Continuous Current Severity: Mild Maximum Severity: Moderate Worsened by: Nothing Relieved by: Nothing Associated Symptoms Associated Symptoms - Eyes: Crusting, Drainage, Eyelid swelling, Foreign body sensation, Matting and Redness; Negative for Burning, Itching, Pain or Photophobia History of injury: No Visual correction: Glasses Narrative Narrative: Patient is a 56-year-old woman with history of type 2 diabetes and hypercholesterolemia who presents because of concern for pinkeye. She was seen earlier this week by her military pilot and placed on doxycycline for possible stye. Patient denies fever, chills night sweats. Patient reports gritty sensation in her eyes. She denies photophobia. She denies any other symptoms. She denies her blood sugars being higher than normal. Prior similar symptoms: Yes Recent Illness/Hospitalization: No PFSH [facility] Medical History Abnormal nuclear stress test (05/24/20) Allergic conjunctivitis Chronic headaches Dyspnea on minimal exertion Elevated blood pressure reading without diagnosis of hypertension Essential (primary) hypertension Hyperglycemia due to type 2 diabetes mellitus Hyperlipidemia Mild asthma Morbid obesity BARNARD (nonalcoholic steatohepatitis) Nicotine dependence Obstructive sleep apnea Periorbital cellulitis of right eye Energy Advisor's nodule Type 2 diabetes mellitus Home Medications atorvastatin 10 mg tablet 10 mg PO DAILY 09/19/17 [History Last Taken Unknown] fenofibrate 54 mg tablet 54 mg PO DAILY 06/24/20 [History Last Taken Unknown] losartan 50 mg tablet 50 mg PO DAILY #90 tabs 06/26/20 [Rx Last Taken Unknown] colestipol 1 gram tablet 2 gm PO BID 10/06/20 [History Last Taken Unknown] acetaminophen 500 mg tablet 1,000 mg PO Q6H PRN Pain 12/24/20 [History Last Taken Unknown] albuterol sulfate 90 mcg/actuation aerosol inhaler 2 puff inhalation Q4H PRN Wheezing 12/24/20 [History Last Taken Unknown] amitriptyline 50 mg tablet 50 mg PO QHS 12/24/20 [History Last Taken Unknown] glimepiride 4 mg tablet 8 mg PO DAILY 12/24/20 [History Last Taken Unknown] ibuprofen 200 mg tablet 400 mg PO Q6H PRN Pain 12/24/20 [History Last Taken Unknown] metformin 500 mg tablet,extended release 24 hr 1,000 mg PO BID 12/24/20 [History Last Taken Unknown] ciprofloxacin HCl 0.3 % eye drops 1 drp EACH EYE Q4H 5 days #2.5 mL 11/15/22 [Rx Last Taken Unknown] doxycycline monohydrate 100 mg tablet 100 mg PO BID 11/15/22 [History Last Taken Unknown] Allergy/AdvReac Type Severity Reaction Status Date / Time bacitracin Allergy Other Verified 11/15/22 20:50 hydrocodone bitartrate AdvReac Nausea Verified 11/15/22 20:50 [From Vicodin] Family History Mother Hypertension Heart disease Hyperlipidemia Grandfather Cancer COPD (chronic obstructive pulmonary disease) Surgical History History of History of cholecystectomy History of tonsillectomy and adenoidectomy History of tubal ligation Social History Smoking Status: Former smoker quit date: 06/14/19 pack-years: 40 Tobacco: How many years used: 40 how long ago did patient quit smokin07/21/2019 alcohol intake: current alcohol intake frequency: holidays/special occasions only substance use type: does not use caffeine: Yes Type: coffee Number of servings: 1 and tea ROS ROS ED Constitutional Constitutional ED: Denies chills or fever(s) Eyes Eyes: Denies blurry vision, change in vision or diplopia ENT ENT ED: Denies ear pain, rhinorrhea or sore throat Gastrointestinal Gastrointestinal: Denies nausea or vomiting Integumentary Denies rash Neurologic Neurologic: Denies headache(s) Endocrine Endocrinology: Denies polydipsia or polyuria Hematologic/Lymphatic Hematologic/Lymphatic: Denies easy bleeding or easy bruising EXAM Physical Exam Const Vital Signs: 11/15/22 20:50 Temperature 96.8 F L Temperature Source Temporal Pulse Rate 66 Respiratory Rate 16 Blood Pressure 177/81 H Blood Pressure Mean 113 Pulse Ox 98 Positive well nourished, well developed and obese General Appearance ED: well developed Nutritional Appearance: obese HEENT HEENT Narrative: Ears are normal. Head is normocephalic. There is no preauricular lymphadenopathy. atraumatic Nose: external nose normal Eyes Eyes Narrative: Pupils are equal round reactive to light and accommodation. Extraocular muscles are intact. The bulbi and palpebral conjunctive are injected. Patient has a thick green drainage noted. There is no abnormality of the lid or lash. The lacrimal biases. There is no pain with movement of the eye. There is no exophthalmos's. There is no photophobia to direct or consensual light. Neck no lymphadenopathy, supple and no JVD Resp normal respiratory effort Cardio regular rate Neuro oriented x3 and CN's II-XII intact bilaterally Skin no wounds Lesions: no lesions Rashes: no rashes MDM MDM MDM Narrative Medical decision making narrative: There is no evidence of stye. Patient was informed that she could discontinue the doxycycline. She was prescribed ophthalmic drops. Since local pharmacies are closed the prescription was sent to retail pharmacy to the hospital. Blood pressure is noted to be elevated. Since patient asymptomatic laboratory studies were not ordered. History & Record Review Additional record(s) reviewed:: Prior outpatient record and Prior ED visit Discharge Plan Triage Chief Complaint: Eye Problem ED Provider: Mike Foy Dx/Rx/DC Orders Clinical Impression: Acute conjunctivitis, bilateral, Essential (primary) hypertension, Hyperlipidemia, History of diabetes mellitus, type II Instructions: ED Conjunctivitis, Nonspecific Prescriptions: New ciprofloxacin HCl 0.3 % drops 1 drp EACH EYE Q4H 5 Days Qty: 2.5 0RF Rx Instructions: administer while awake No Action losartan 50 mg tablet 50 mg PO DAILY Qty: 90 3RF fenofibrate 54 mg tablet 54 mg PO DAILY metformin 500 mg tablet extended release 24 hr 1,000 mg PO BID albuterol sulfate 90 mcg/actuation HFA aerosol inhaler 2 puff INHALATION Q4H PRN (Reason: Wheezing) glimepiride 4 mg tablet 8 mg PO DAILY acetaminophen 500 mg tablet 1,000 mg PO Q6H PRN (Reason: Pain) amitriptyline 50 mg tablet 50 mg PO QHS Label Comments: take 1 tablet by mouth at bedtime ibuprofen 200 mg tablet 400 mg PO Q6H PRN (Reason: Pain) atorvastatin 10 MG tablet 10 mg PO DAILY colestipol 1 GM tablet 2 gm PO BID doxycycline monohydrate 100 mg tablet 100 mg PO BID Label Comments: TAKE 1 TABLET BY MOUTH TWICE DAILY FOR 10 DAYS Rx Instructions: x 10 days, started 11/05 Primary Care Provider: Danny Suarez Referrals: Danny Suarez MD [Primary Care Provider] - Sheila Price MD [Med Staff - Active Staff] - 3-5 Days if not improving Disposition Disposition: Home, Self Care
== END 2022-11-15 23:00 | disposition home or self-care (01) ==
PROVIDERS: Emergency Provider Emergency Medicine; PCP Family Medicine; Visit Provider Emergency Medicine
DX: H10.33 Unspecified acute conjunctivitis, bilateral (principal); E11.9 Type 2 diabetes mellitus without complications; Z87.891 Personal history of nicotine dependence; I10 Essential (primary) hypertension; E78.00 Pure hypercholesterolemia, unspecified; Z79.899 Other long term (current) drug therapy; Z79.84 Long term (current) use of oral hypoglycemic drugs; Z79.1 Long term (current) use of non-steroidal anti-inflammatories (NSAID); Z90.49 Acquired absence of other specified parts of digestive tract
CPT/HCPCS: 99282

== ENCOUNTER 2024-01-25 23:05 | Emergency (ER) | payer MEDICARE, MEDICAID, SELFPAY ==
[2024-01-25 23:06] VITALS: BP 168/66; PULSE 73; RESP 16; TEMP 36.6; O2SAT 99; BMI 43.7
--- NOTE | 2024-01-26 00:21 | RAD_ITS ---
INDICATION: pain EXAMINATION/TECHNIQUE: X-RAY - LEFT XR Tibia/Fibula 2 Views 2 VIEWS COMPARISON: Prior study dated: 10/19/2013 FINDINGS: SOFT TISSUES: No soft tissue swelling or gas. No radiopaque foreign body. BONES/JOINTS: No acute fracture or subluxation.. Normal alignment at the knee and ankle. Preservation of the joint space.. No sclerotic or destructive changes observed. RAD/Tibia & Fibula 2 Views IMPRESSION: No fracture or malalignment. Electronically Signed: Bernardo Crooks MD at 1:37 EDT ,
--- NOTE | 2024-01-26 01:21 | EDS_ITS ---
HPI History of Present Illness Chief Complaint: Lower Extremity Injury Informant: patient Narrative Narrative: Patient is a 58-year-old female with past medical history of hypertension hyperlipidemia and [id number] diabetes. She states that earlier tod ay she was going down her stairs as she lives on the second floor and she felt like she got kicked in the back of the left leg. She states her leg buckled but she did not fall. She states since that time she has had pain in her left calf and as time has passed she has noticed increased swelling and bruising. She denies any history of bleeding disorder or blood thinner use but with the worsening symptoms comes in for evaluation [facility] Medical History Abnormal nuclear stress test (05/24/20) Allergic conjunctivitis Chronic headaches Dyspnea on minimal exertion Elevated blood pressure reading without diagnosis of hypertension Essential (primary) hypertension Hyperglycemia due to type 2 diabetes mellitus Hyperlipidemia Mild asthma Morbid obesity BARNARD (nonalcoholic steatohepatitis) Nicotine dependence Obstructive sleep apnea Periorbital cellulitis of right eye Textile Artist's nodule Type 2 diabetes mellitus Home Medications ?Medication ?Instructions ?Recorded ?Last Taken ?Type atorvastatin 10 mg tablet 10 mg PO DAILY 09/19/17 Unknown History fenofibrate 54 mg tablet 54 mg PO DAILY 06/24/20 Unknown History losartan 50 mg tablet 50 mg PO DAILY #90 tabs 06/26/20 Unknown Rx colestipol 1 gram tablet 2 gm PO BID 10/06/20 Unknown History acetaminophen 500 mg tablet 1,000 mg PO Q6H PRN Pain 12/24/20 Unknown History albuterol sulfate 90 mcg/actuation 2 puff inhalation Q4H PRN Wheezing 12/24/20 U nknown History aerosol inhaler amitriptyline 50 mg tablet 50 mg PO QHS 12/24/20 Unknown History glimepiride 4 mg tablet 8 mg PO DAILY 12/24/20 Unknown History ibuprofen 200 mg tablet 400 mg PO Q6H PRN Pain 12/24/20 Unknown History metformin 500 mg tablet,extended 1,000 mg PO BID 12/24/20 Unknown History release 24 hr ciprofloxacin HCl 0.3 % eye drops 1 drp EACH EYE Q4H 5 days #2.5 mL 11/15/22 Unknown Rx doxycycline monohydrate 100 mg 100 mg PO BID 11/15/22 Unknown History tablet oxycodone-acetaminophen 5 mg-325 1 tab PO Q6H PRN pain 3 days #12 01/26/24 Unknown Rx mg tablet (Percocet) tabs Allergy/AdvReac Type Severity Reaction Status Date / Time bacitracin Allergy Other Verified 01/25/24 23:05 hydrocodone bitartrate (From AdvReac Nausea Verified 01/25/24 23:05 Vicodin) Family History Mother Hypertension Heart disease Hyperlipidemia Grandfather Cancer COPD (chronic obstructive pulmonary disease) Surgical History History of History of cholecystectomy History of tonsillectomy and adenoidectomy History of tubal ligation Social History Smoking Status: Former smoker quit date: 06/14/19 pack-years: 40 Tobacco: How many years used: 40 how long ago did patient quit smokin07/21/2019 alcohol intake: current alcohol intake frequency: holidays/special occasions only substance use type: does not use caffeine: Yes Type: coffee Number of servings: 1 and tea ROS ROS ED Constitutional Constitutional ED: Denies chills or fever(s) ENT ENT ED: Denies sore throat Cardiovascular Cardiovascular: Denies chest pain, palpitations or racing heartbeat Respiratory/Chest Respiratory/Chest: Denies cough or dyspnea Gastrointestinal Gastrointestinal: Denies abdominal pain, diarrhea, nausea or vomiting Genitourinary Genitourinary ED: Denies dysuria Musculoskeletal Musculoskeletal: Reports other Details: Positive left calf pain Integumentary Reports other Details: Positive bruising left calf ; Denies rash Neurologic Neurologic: Denies headache(s), paresthesias or weakness Hematologic/Lymphatic Hematologic/Lymphatic: Denies easy bleeding or easy bruising EXAM Physical Exam Const Vital Signs: 01/26/24 01:34 Temperature 98 F Pulse Rate 70 Respiratory Rate 16 Blood Pressure 154/70 H Blood Pressure Mean 98 Pulse Ox 100 Positive well nourished, well developed and obese General Appearance ED: well developed Nutritional Appearance: obese HEENT HEENT Narrative: Normocephalic atraumatic Eyes PERRL and EOMs intact bilaterally General Eye ED: Negative for scleral icterus Neck supple Resp normal respiratory effort and clear to auscultation bilaterally Cardio regular rate and regular rhythm Extremity Extremity Narrative: Left lower extremity is neurovascularly intact. There is asymmetric swelling of the left calf compared to right. However there is ecchymosis associate with the swelling without erythema or warmth. There is pain with palpation of the left calf compared to right as well. Patient still has plantarflexion present going against Achilles tendon rupture. Compartments are soft and compressible going against compartment syndrome. No obvious bony deformity or joint effusion Remainder of the exam is normal Neuro oriented x3, CN's II-XII intact bilaterally and no sensory deficits noted Sensorium / Orientation: alert Psych mental status grossly normal Skin no rashes or lesions noted Skin Narrative: Soft tissue swelling and ecchymosis to the left calf as documented above MDM MDM MDM Narrative Medical decision making narrative: Patient arrived to the ER hypertensive but has a past medical history of this. She reported her pain began after she felt like she was kicked. On exam she has bruising and swelling concerning for muscular tear. She does not have recent travel or surgery or hormone use and my concern for DVT is low as well. There is no bony pain with palpation or deformity going against an acute fracture or dislocation. An x-ray was obtained to rule out a bony event and the re is no imaging findings to suggest this. In order to rule out DVT should be given order form for an outpatient venous duplex but her exam does not suggest this type of disease process as a cause of her pain therefore I do not feel there is need for Lovenox. Also as the area is compressible this goes against compartment syndrome so there is no need for an emergent orthopedic consultation. Her exam and history is consistent with a partial tear of her gastroc and soleus muscles should be given an Nathan wrap for compression and pain control and can follow-up with orthopedics on an outpatient basis to discuss MRI for further evaluation and treatment History & Record Review Discussion w/independent historian: Patient Radiography Diagnostic Testing: Clinical Impression(s) from Imaging Studies Tibia/Fibula X-Ray 01/26/24 00:21 IMPRESSION: No fracture or malalignment. Electronically Signed: Bernardo Crooks MD at 1:37 EDT Reading Location ID and State: [facility] / [place] Tel , Service support , X-ray of the left tibia/fibula as interpreted by the emergency medicine physician reveals soft tissue swelling without acute fracture or dislocation Discharge Plan Triage Chief Complaint: Lower Extremity Injury ED Provider: Jerry Kent Dx/Rx/DC Orders Clinical Impression: Pain of left calf, Left leg swelling, Essential (primary) hypertension, Hyperli pidemia, Type 2 diabetes mellitus Instructions: ED Muscle Strain, Extremity Prescriptions: New oxycodone-acetaminophen [Percocet] 5-325 mg tablet 1 tab PO Q6H PRN (Reason: pain) 3 Days Qty: 12 0RF No Action losartan 50 mg tablet 50 mg PO DAILY Qty: 90 3RF fenofibrate 54 mg tablet 54 mg PO DAILY metformin 500 mg tablet extended release 24 hr 1,000 mg PO BID albuterol sulfate 90 mcg/actuation HFA aerosol inhaler 2 puff INHALATION Q4H PRN (Reason: Wheezing) glimepiride 4 mg tablet 8 mg PO DAILY acetaminophen 500 mg tablet 1,000 mg PO Q6H PRN (Reason: Pain) amitriptyline 50 mg tablet 50 mg PO QHS Patient Comments: take 1 tablet by mouth at bedtime ibuprofen 200 mg tablet 400 mg PO Q6H PRN (Reason: Pain) atorvastatin 10 MG tablet 10 mg PO DAILY colestipol 1 GM tablet 2 gm PO BID doxycycline monohydrate 100 mg tablet 100 mg PO BID Patient Comments: TAKE 1 TABLET BY MOUTH TWICE DAILY FOR 10 DAYS Rx Instructions: x 10 days, started 11/05 ciprofloxacin HCl 0.3 % drops 1 drp EACH EYE Q4H 5 Days Qty: 2.5 0RF Rx Instructions: administer while awake Primary Care Provider: Danny Suarez Referrals: Robert Mckeon DO [Med Staff - Active Staff] - Danny Suarez MD [Primary Care Provider] - Activity Restrictions/Additional Instructions: Your history and exam indicate a muscular tear to your left calf. Wear the Nathan wrap for compression to help prevent further swelling. Obtain the outpatient venous duplex to ensure there is no DVT/blood clot. Follow-up with orthopedics to discuss need for potential MRI to further assess the cause of your symptoms and return to the ER should you have any further concerns. Print Language: Irish Disposition Disposition: Home, Self Care Discharge Date/Time: 01/26/24 01:35
[2024-01-26 01:34] VITALS: BP 154/70; PULSE 70; RESP 16; TEMP 36.6; O2SAT 100
[2024-01-26] MEDS: oxyCODONE 5 MG Tablet 10 MG PO (01:34)
== END 2024-01-26 01:35 | disposition home or self-care (01) ==
PROVIDERS: Emergency Provider Emergency Medicine; PCP Family Medicine; Visit Provider Emergency Medicine
DX: M79.662 Pain in left lower leg (principal); E11.9 Type 2 diabetes mellitus without complications; M79.89 Other specified soft tissue disorders; I10 Essential (primary) hypertension; E78.5 Hyperlipidemia, unspecified; G47.33 Obstructive sleep apnea (adult) (pediatric); E66.9 Obesity, unspecified; Z87.891 Personal history of nicotine dependence
CPT/HCPCS: 73590; 99282

== ENCOUNTER → 2024-01-26 | Outpatient (CLI) | payer MEDICARE, MEDICAID, SELFPAY ==
--- NOTE | 2024-01-26 08:41 | VDLE_ITS ---
Reason For Study: Left leg pain Procedure LEFT This is a venous duplex using B-mode, color GSV is normal. flow and spectral Doppler. CFV is compressible, spontaneous, phasic, Exam performed in department. competent, and demonstrates normal A preliminary report was called and/or faxed augmentation. to PCP: Dr. Suarez. FV is compressible, spontaneous, phasic, competent and demonstrates normal augmentation. POP V is compressible, spontaneous, phasic, competent and demonstrates normal augmentation. T/P Trunk is compressible. PTV is compressible. LT PerV is compressible. Large nonvascular structure noted in the left calf muscle. VL/Venous Duplex US, Unilateral Interpretation Summary Deep veins of the left lower extremity are patent and compressible segmentally. There is no evidence of left lower extremity deep vein thrombosis. The left great saphenous vein melissa ears patent and compressible segmentally. Nonvascular structure noted in the left calf muscle. Ordering Physician: Jerry Kent Referring Physician: Danny Suarez Performed By: Ashly Alberts RVT
== END | disposition home or self-care (01) ==
LOC: CVS 08:40
PROVIDERS: PCP Family Medicine; Referring Provider Emergency Medicine; Visit Provider Emergency Medicine
DX: M79.662 Pain in left lower leg (principal)
CPT/HCPCS: 93971

== ENCOUNTER 2024-01-29 23:19 | Emergency (ER) | payer MEDICARE, MEDICAID, SELFPAY ==
[2024-01-29 23:20] VITALS: BP 146/91; PULSE 77; RESP 16; TEMP 36.7; O2SAT 97
[2024-01-29 23:23] VITALS: BMI 44.9
--- NOTE | 2024-01-29 23:37 | ED.VIS.LOWEX ---
HPI History of Present Illness Chief Complaint: Lower Extremity Injury Informant: patient and family Narrative Narrative: 58-year-old female with pain in her left calf, she was seen here several nights ago for the same thing, started all of a sudden while she was walking down steps in her home, felt like somebody kicked her in the back of the calf and the pain was severe. States since then still very difficult to walk on specially when going up or down stairs, and has developed bruising and swelling distally in the foot. There is no pain there. Had an outpatient DVT ultrasound that she had performed, and has a follow-up appointment with her doctor on Wednesday, she presents late Wednesday night now. [facility] Medical History Essential (primary) hypertension Nicotine dependence [employer]'s nodule Chronic headaches Mild asthma Obstructive sleep apnea BARNARD (nonalcoholic steatohepatitis) Dyspnea on minimal exertion Abnormal nuclear stress test (05/24/20) Elevated blood pressure reading without diagnosis of hypertension Morbid obesity Hyperlipidemia Type 2 diabetes mellitus Hyperglycemia due to type 2 diabetes mellitus Allergic conjunctivitis Periorbital cellulitis of right eye Home Medications ?Medication ?Instructions ?Recorded ?Last Taken ?Type atorvastatin 10 mg tablet 10 mg PO DAILY 09/19/17 Unknown History fenofibrate 54 mg tablet 54 mg PO DAILY 06/24/20 Unknown History losartan 50 mg tablet 50 mg PO DAILY #90 tabs 06/26/20 Unknown Rx colestipol 1 gram tablet 2 gm PO BID 10/06/20 Unknown History acetaminophen 500 mg tablet 1,000 mg PO Q6H PRN Pain 12/24/20 Unknown History albuterol sulfate 90 mcg/actuation 2 puff inhalation Q4H PRN Wheezing 12/24/20 Unknown History aerosol inhaler amitriptyline 50 mg tablet 50 mg PO QHS 12/24/20 Unknown History glimepiride 4 mg tablet 8 mg PO DAILY 12/24/20 Unknown History ibuprofen 200 mg tablet 400 mg PO Q6H PRN Pain 12/24/20 Unknown History metformin 500 mg tablet,extended 1,000 mg PO BID 12/24/20 Unknown History release 24 hr ciprofloxacin HCl 0.3 % eye drops 1 drp EACH EYE Q4H 5 days #2.5 mL 11/15/22 Unknown Rx doxycycline monohydrate 100 mg 100 mg PO BID 11/15/22 Unknown History tablet oxycodone-acetaminophen 5 mg-325 1 tab PO Q6H PRN pain 3 days #12 01/26/24 Unknown Rx mg tablet (Percocet) tabs Allergy/AdvReac Type Severity Reaction Status Date / Time bacitracin Allergy Other Verified 01/29/24 23:20 hydrocodone bitartrate (From AdvReac Nausea Verified 01/29/24 23:20 Vicodin) Family History Mother Hypertension Heart disease Hyperlipidemia Grandfather Cancer COPD (chronic obstructive pulmonary disease) Surgical History History of tubal ligation History of tonsillectomy and adenoidectomy History of History of cholecystectomy Social History Smoking Status: Former smoker quit date: 06/14/19 pack-years: 40 Tobacco: How many years used: 40 how long ago did patient quit smokin07/21/2019 alcohol intake: current alcohol intake frequency: holidays/special occasions only substance use type: does not use caffeine: Yes Type: coffee Number of servings: 1 and tea ROS ROS ED Constitutional Constitutional ED: Denies chills or fever(s) Musculoskeletal Musculoskeletal: Reports extremity pain; Denies neck pain Integumentary Denies Abrasions, rash or wounds Neurologic Neurologic: Denies paresthesias or weakness EXAM Physical Exam Const Vital Signs: 01/29/24 23:20 Temperature 98.1 F Temperature Source Temporal Pulse Rate 77 Respiratory Rate 16 Blood Pressure 146/91 H Blood Pressure Mean 109 Pulse Ox 97 Oxygen Delivery Method Room Air Positive well nourished and well developed General Appearance ED: well developed and NAD Neck full ROM and supple Back/Spine normal ROM and normal to inspection Extremity Extremity Narrative: Tenderness in the left calf. It is swollen but compartments are soft and relatively nondistended. Limited range of motion of the ankle due to pain in the calf but plantarflexion intact. There is edema in the dorsal midfoot that is nontender, along with ecchymosis there and at the plantar aspect tibial he and peroneally, consistent with bruising settling in fascial layers. Bounding 2+/4 dorsalis pedis pulse. Brisk cap refill distally all toes. Neuro oriented x3, no focal motor deficits and no sensory deficits noted Sensorium / Orientation: alert Psych mental status grossly normal and thought process normal Skin no wounds Skin Narrative: Ecchymoses in the distal aspect of the left lower extremity as noted above, no in the skin. Rashes: no rashes MDM MDM MDM Narrative Medical decision making narrative: I reviewed the patient's prior ER visit, as well as the outpatient Doppler. It is negative for DVT. It is noted in the study that there is a large nonvascular abnormality in the middle of the calf. In my judgment this is consistent with what the history suggest which is a ruptured gastrocnemius muscle or tendon. Supportive care is advised right now as well as orthopedic follow-up, she was given the same orthopedist that she was referred to before, she is yet to make an appointment but will. I am giving her crutches which will help. She was already prescribed oxycodone. We considered putting here in a posterior splint in plantarflexion, however that increases the chances of venous thrombosis, and if she gets crutches she thinks that she will be in less pain and make it easier to get around I think that is reasonable for now. History & Record Review Additional record(s) reviewed:: Prior ED visit and Other (Outpatient imaging, duplex Doppler ultrasound left lower extremity 01/26/24) Discharge Plan Triage Chief Complaint: Lower Extremity Injury ED Provider: Hussein Hernadez Dx/Rx/DC Orders Clinical Impression: Rupture of left gastrocnemius muscle Instructions: Gastrocnemius Muscle Tear Prescriptions: No Action losartan 50 mg tablet 50 mg PO DAILY Qty: 90 3RF fenofibrate 54 mg tablet 54 mg PO DAILY metformin 500 mg tablet extended release 24 hr 1,000 mg PO BID albuterol sulfate 90 mcg/actuation HFA aerosol inhaler 2 puff INHALATION Q4H PRN (Reason: Wheezing) glimepiride 4 mg tablet 8 mg PO DAILY acetaminophen 500 mg tablet 1,000 mg PO Q6H PRN (Reason: Pain) amitriptyline 50 mg tablet 50 mg PO QHS Patient Comments: take 1 tablet by mouth at bedtime ibuprofen 200 mg tablet 400 mg PO Q6H PRN (Reason: Pain) atorvastatin 10 MG tablet 10 mg PO DAILY colestipol 1 GM tablet 2 gm PO BID doxycycline monohydrate 100 mg tablet 100 mg PO BID Patient Comments: TAKE 1 TABLET BY MOUTH TWICE DAILY FOR 10 DAYS Rx Instructions: x 10 days, started 11/05 ciprofloxacin HCl 0.3 % drops 1 drp EACH EYE Q4H 5 Days Qty: 2.5 0RF Rx Instructions: administer while awake oxycodone-acetaminophen [Percocet] 5-325 mg tablet 1 tab PO Q6H PRN (Reason: pain) 3 Days Qty: 12 0RF Primary Care Provider: Danny Suarez Referrals: Robert Mckeon DO [Med Staff - Active Staff] - As soon as possible Danny Suarez MD [Primary Care Provider] - 01/31/24 Print Language: Azeri Disposition Disposition: Home, Self Care
== END 2024-01-30 00:03 | disposition home or self-care (01) ==
LOC: ED 23:41
PROVIDERS: Emergency Provider Emergency Medicine; PCP Family Medicine; Visit Provider Emergency Medicine
DX: M62.162 Other rupture of muscle (nontraumatic), left lower leg (principal); E11.9 Type 2 diabetes mellitus without complications; X58.XXXA Exposure to other specified factors, initial encounter; I10 Essential (primary) hypertension; E78.5 Hyperlipidemia, unspecified; Z79.84 Long term (current) use of oral hypoglycemic drugs; Z79.899 Other long term (current) drug therapy; Z87.891 Personal history of nicotine dependence
CPT/HCPCS: 99283